=== PATIENT | female | born 1995 | race Two or more races ===

== ENCOUNTER 2024-09-04 13:14 | Emergency (ER) | payer MEDICAID, SELFPAY ==
[2024-09-04 13:23] VITALS: BP 111/72; PULSE 103; RESP 18; TEMP 38.6; O2SAT 97; BMI 24.4
--- NOTE | 2024-09-04 13:46 | EDNOTE_ITS ---
ED Fever RME/HPI General Chief Complaint: Fever Stated Complaint: Fever since last night, painful urination X 1 day Time Seen by Provider: 09/04/24 13:19 Arrival date/time: 09/04/24 13:14 RME / HPI RME / HPI Narrative: This section includes all my notes and documentations, including HPI, PE, MDM, Procedure Notes, and PLAN. Vish Sotelo MD HPI: 29 year old female with no stated medical history presents to the ED for comp laint of fevers, body aches, chils, and dry cough beginning yesterday. States she has taken Nyquil, last dose at 03:00am, without improvement. Additionally reports painful urination also beginning yesterday. Denies any sick contacts. Denies chest pain, shortness of breath, sore throat, abdominal pain, nausea, vomiting, diarrhea. No known modifying factors. No other complaints reported. ROS: Respiratory: negative except as documented in HPI. Gastrointestinal: negative except as documented in HPI. Genitourinary: negative except as documented in HPI. Musculoskeletal: negative except as documented in HPI. Skin: negative except as documented in HPI. Neurological: negative except as documented in HPI. Physical Exam: General: Alert and oriented. Cough and congestion noted. Eyes: Conjunctivae and lids clear. ENT: No nasal congestion. Pharynx normal. Tympanic membrane normal bilaterally. Neck: Supple. Heart: RRR. Lungs: No respiratory distress. Good air movement. No rhonchi, wheezing, rales. Abdomen: Soft and nontender. Normal bowel sounds. No distension. No rebound or guarding. Back: No CVA tenderness. Skin: Warm and dry. Neuro: Alert and oriented X 3. I reviewed all diagnostic test results. COVID/influenza negative. Urine negative. UA unremarkable. At this point, diagnoses include URI. Treatment here included ibuprofen and Tylenol. Recommended supportive care. Based on my best medical judgment, made decision no further evaluation or treatment indicated at this time. Patient understands and agrees to the discharge instructions customized and printed, see below. Vish Sotelo MD Related Data Previous Rx's ?Medication ?Instructions ?Recorded prednisone 50 mg tablet 50 mg PO QDAY #3 tabs 09/04/24 Allergies Allergy/AdvReac Type Severity Reaction Status Date / Time No Known Allergies Allergy Verified 05/07/24 21:25 Review of Systems Review of Systems Systems Reviewed: All systems reviewed, normal except as documented Past Medical History Past Medical History CARDIAC: Positive Cardiac Disorders and Heart Murmur; Negative Congestive Heart Failure RESPIRATORY: Negative Chronic Obstructive Pulmonary Disease (COPD) GENITOURINARY: Negative Renal Disease ENDOCRINE: Negative Diabetes Mellitus Type 1 or Diabetes Mellitus Type 2 Social History SMOKING STATUS: Never smoker Physical Exam Narrative Physical exam: As noted in HPI Course Quality Measures none Orders Category Date Time Status Bedside COVID-19 Antigen Test NOW Care 09/04/24 13:24 Completed Bedside Influenza A&B Antigen Test NOW Care 09/04/24 13:24 Completed HCG Qualitative,Urine Stat Lab 09/04/24 14:00 Completed UA [Urinalysis] Stat Lab 09/04/24 14:00 Completed Acetaminophen Tab [Tylenol Tab] Med 09/04/24 13:24 Discontinued 650 mg PO X1 ONE Ibuprofen Tab [Motrin Tab] Med 09/04/24 13:24 Discontinued 600 mg PO X1 ONE Vital Signs Vital signs: Vital Signs Temperature 101.4 F H 09/04/24 13:23 Pulse Rate 103 H 09/04/24 13:23 Respiratory Rate 18 09/04/24 13:23 Blood Pressure 111/72 09/04/24 13:23 Pulse Oximetry (%) 97 09/04/24 13:23 Oxygen Delivery Method Room Air 09/04/24 13:23 Pulse ox is 97% on room air which is adequate. Fever MDM Narrative MDM Narrative:: Milka Rice am scribing for and in the presence of Dr. Sotelo. Patient data External records reviewed:: [facility] previous records (I reviewed ED visit on 05/08/2024) Clinical information provided by:: patient Social determinants that could affect healthcare access:: none Patient has the following chronic illnesses:: None How is presenting disease/condition affected by chronic disease/condition?: no chronic disease Evaluation data The following diagnostics were reviewed and interpreted by me:: lab results Lab and/or radiology exams considered but not ordered:: None Interpretation Summary: COVID/influenza negative and normal UA. Medications / Prescriptions Medications or Prescriptions considered but not ordered:: None Medication administrations:: Medication Administration History Discontinued Medications Acetaminophen (Acetaminophen 325 Mg Tablet) 650 mg PO X1 ONE Stop: 09/04/24 13:25 Last Admin: 09/04/24 14:13 Dose: 650 mg Documented By: Ibuprofen (Ibuprofen Tab 600 Mg Tablet) 600 mg PO X1 ONE Stop: 09/04/24 13:25 Last Admin: 09/04/24 14:14 Dose: 600 mg Documented By: See above Consultations Consultation(s) initiated? (list below): No Diagnosis Fever Differential Diagnosis: fever of unknown origin, viral infection, influenza and other (UTI) Most likely diagnosis given after review of the tests above:: URI Admission Indicated Admission indicated?: not indicated Explain why admission is indicated or not indicated:: No criteria for admission Admission Request Was there a request for admission?: No Disposition Plan Disposition Plan: Discharge Discharge Attestation Discharge Attestation: The patient and all family members were given an opportunity to ask questions and understood the discharge instructions. Discharge instructions specifically effects, indications for sooner follow up or return to the emergency department, and the expected course of current diagnosis. Patient condition: Stable Discharge Plan Plan Patient Disposition: HOME (Self Care) Prescriptions/Referrals Prescriptions/Med Rec: New prednisone 50 mg tablet 50 mg PO QDAY Qty: 3 0RF Referrals: Leela Archer FNP [Primary Care Provider] - In 1 week Problem List Clinical Impression: Viral infection, Common cold virus Patient/Caregiver Discharge Instructions Discharge Activity: activity as tolerated Education Materials: ED URI, Viral, No Abx (Adult) Additional Instructions: Discharge Instructions from Dr. Sotelo: 1. The tests today for COVID and influenza were negative.? 2. We don't have a way to test for all the bugs out there.? But most are virus bugs and we don't have good medications to kill them.? But your immune system will fight off the infection. 3. Tylenol 650 mg alternating with ibuprofen 600 mg every 4 hours today and tomorrow scheduled. Then as needed for fever. 4. Prednisone as prescribed to help with your cough and congestion. Benadryl as needed for more help with cough and congestion. 5. Increase oral fluid.? The immune system needs extra when sick. 6. See a private doctor on 09/08/2024 if not better. 7. Seek immediate medical care with worsening or with any concerns. I will call you with your urine test results. If you don't hear from me by 4:30 PM, please call me here in the ER, I will be here until 6 PM. Print Language: Spanish Stand Alone Forms: Paige Award Info., Patient Portal Info Letter
[2024-09-04 14:13] VITALS: TEMP 38.6
[2024-09-04] MEDS: ACETAMINOPHEN 325 MG TABLET 650 MG PO (14:13)
[2024-09-04 14:14] VITALS: TEMP 38.6
[2024-09-04] MEDS: IBUPROFEN TAB 600 MG TABLET PO (14:14)
[2024-09-04 14:43] LABS: Collection Type, Urine Clean Catch
[2024-09-04 14:47] LABS: HCG Qualitative,Urine Negative
[2024-09-04 15:15] LABS: Bacteria,Urine Rare; Bilirubin,Urine Negative (Negative); Blood,Urine Negative (Negative); Clarity,Urine Clear (Clear/Hazy); Color,Urine Lt-Yellow (Lt Yel-Yel); Glucose, Urine Negative (Negative); Ketones,Urine 2+ (Negative); Leukocyte Esterase,Urine Negative (Negative); Nitrite,Urine Negative (Negative); PH,Urine 6.5 (5.0-7.0); Protein,Urine Negative (Neg - Trace); RBC,Urine 2 /hpf (0-3); Specific Gravity,Urine 1.011 (1.001-1.035); Squamous Epithelial Cell,Urine 2 /hpf (0-5); Urobilinogen,Urine Negative mg/dL (0.0-1.0); WBC,Urine 2 /hpf (0-5)
== END 2024-09-04 15:25 | disposition home or self-care (01) ==
PROVIDERS: Emergency Provider Emergency Medicine; PCP Nurse Practitioner Family
DX: J00 Acute nasopharyngitis [common cold] (principal); B34.9 Viral infection, unspecified
CPT/HCPCS: 81001; 81025; 87400; 87811; 99283; A9270